=== PATIENT | female | born 1940 | race Caucasian/White ===

== ENCOUNTER → 2016-10-12 | Outpatient (CLI) | payer MEDICARE, OTHER ==
[~2016-10-12] MED LIST: FEOSOL-DPS325 MG PO; GLUCOPHAGE-DPS500 MG PO; NORCO 5-325 TA1 EACH PO
== END | disposition home or self-care (01) ==
LOC: RAD.S 12:03 → PTH.S 12:30
DX: C18.2 Malignant neoplasm of ascending colon (principal); M47.896 Other spondylosis, lumbar region; I10 Essential (primary) hypertension

== ENCOUNTER → 2016-11-18 | Outpatient (CLI) | payer MEDICARE, OTHER | END | disposition home or self-care (01) | LOC: RAD.S 11-14 14:36 | DX: N63 Unspecified lump in breast (principal); R92.8 Other abnormal and inconclusive findings on diagnostic imaging of breast ==